=== PATIENT | male | born 1985 | race Caucasian/White ===

== ENCOUNTER 2016-11-06 18:14 | Observation (INO) | payer OTHER ==
[~2016-11-06] VITALS: Ht 177.8 cm; Wt 98.3 kg
--- NOTE | 2016-11-06 20:31 | ED ORDER SUMMARY ---
..... Patient: PAMELA FERRARO OrderSheet [facility] VisitID: [id number] [place] [address] 31y, M Registration Date/Time: 11/06/2016 ORDER SHEET Weight: 97.5 kg (stated) Allergies: None GENERAL ORDERS: CT Abd/Pel w Cont (No) (N/A) Urgent (19:36 11/06/2016 Srini MONAE) (Ack 19:38 Lisbeth) (20:30 JSanders R.N.) CBC w Diff Urgent (19:36 11/06/2016 Srini MONAE) (Ack 19:37 Lisbeth) (19:38 JSanders R.N.) CMP Urgent (19:36 11/06/2016 Srini MONAE) (Ack 19:38 Lisbeth) (19:38 JSanders R.N.) Amylase Urgent (19:36 11/06/2016 Srini MONAE) (Ack 19:38 Lisbeth) (19:38 JSanders R.N.) Lipase Urgent (19:36 11/06/2016 Srini MONAE) (Ack 19:38 Lisbeth) (19:38 JSanders R.N.) UA-Culture if indicated Urgent (19:36 11/06/2016 rSini MONAE) (Ack 19:38 Lisbeth) (21:11 JSanders R.N.) MEDICATION ORDERS: Ondansetron ODT PO 4 mg (NOW) (18:56 11/06/2016 NKneeland R.N. per protocol) (18:56 NKneeland R.N.) IV FLUIDS: IV NS : initial bolus none -, then 1000 mL/hr for X1 (NOW) (18:49 11/06/2016 NKneeland R.N. per protocol) (18:55 NKneeland R.N.) Demerol IV 25 mg (NOW) (19:36 11/06/2016 Srini MONAE) (Ack 19:39 JSanders R.N.) (19:50 JSanders R.N.) Zofran IV 4 mg (NOW) (19:36 11/06/2016 Srini MONAE) (Ack 19:39 JSanders R.N.) (Cancelled: Patient [id number] JSanders R.N.) Invanz IV 1 gm/50mL (NOW) (20:27 11/06/2016 Srini MONAE) (Ack 20:30 JSanders R.N.) (20:57 JSanders R.N.) Demerol IV 25 mg (NOW) (20:45 11/06/2016 Srini MONAE) (Ack 21:02 JSanders R.N.) (21:09 JSanders R.N.) ORDER SHEET NOTES: [Electronically signed by Home Kong MD (21:13 11/06/2016)] [Electronically signed by Genia Shaikh R.N. (05:59 11/07/2016)] [Electronically locked/signed by Genia Shaikh R.N. (05:59 11/07/2016)]
--- NOTE | 2016-11-06 20:31 | ED ORDER SUMMARY ---
..... Patient: PAMELA FERRARO OrderSheet [facility] VisitID: [id number] [place] [address] 31y, M Registration Date/Time: 11/06/2016 ORDER SHEET Weight: 97.5 kg (stated) Allergies: None GENERAL ORDERS: CT Abd/Pel w Cont (No) (N/A) Urgent (19:36 11/06/2016 Srini MONAE) (Ack 19:38 Lisbeth) (20:30 JSanders R.N.) CBC w Diff Urgent (19:36 11/06/2016 Srini MONAE) (Ack 19:37 Lisbeth) (19:38 JSanders R.N.) CMP Urgent (19:36 11/06/2016 Srini MONAE) (Ack 19:38 Lisbeth) (19:38 JSanders R.N.) Amylase Urgent (19:36 11/06/2016 Srini MONAE) (Ack 19:38 Lisbeth) (19:38 JSanders R.N.) Lipase Urgent (19:36 11/06/2016 Srini MONAE) (Ack 19:38 Lisbeth) (19:38 JSanders R.N.) UA-Culture if indicated Urgent (19:36 11/06/2016 Srini MONAE) (Ack 19:38 Lisbeth) (21:11 JSanders R.N.) MEDICATION ORDERS: Ondansetron ODT PO 4 mg (NOW) (18:56 11/06/2016 NKneeland R.N. per protocol) (18:56 NKneeland R.N.) IV FLUIDS: IV NS : initial bolus none -, then 1000 mL/hr for X1 (NOW) (18:49 11/06/2016 NKneeland R.N. per protocol) (18:55 NKneeland R.N.) Demerol IV 25 mg (NOW) (19:36 11/06/2016 Srini MONAE) (Ack 19:39 JSanders R.N.) (19:50 JSanders R.N.) Zofran IV 4 mg (NOW) (19:36 11/06/2016 Srini MONAE) (Ack 19:39 JSanders R.N.) (Cancelled: Patient [id number] JSanders R.N.) Invanz IV 1 gm/50mL (NOW) (20:27 11/06/2016 Srini MONAE) (Ack 20:30 JSanders R.N.) (20:57 JSanders R.N.) Demerol IV 25 mg (NOW) (20:45 11/06/2016 Srini MONAE) (Ack 21:02 JSanders R.N.) (21:09 JSanders R.N.) ORDER SHEET NOTES: [Electronically signed by Home Kong MD (21:13 11/06/2016)] [Electronically signed by Genia Shakih R.N. (05:59 11/07/2016)] [Electronically locked/signed by Genia Shaikh R.N. (05:59 11/07/2016)]
--- NOTE | 2016-11-06 20:31 | ED NURSING NOTES ---
Clinical Report - Nurses [facility] [address] [place] [address] 11/06/2016 18:15 Patient: PAMELA FERRARO TRIAGE Triage time 18:38. Acuity: LEVEL 3. Chief Complaint: ABDOMINAL PAIN and NAUSEA. SEPSIS SCREEN: Sepsis Screen. Negative (no infection suspected/documented). ELOY COMA SCORE: [place] Coma Scale: 15- eyes open spontaneously (4); best verbal response- oriented x 4 (5); best motor response- obeys commands (6). --18:44 Jammie Zambrano R.N. 18:38 11/06/16. BP: 153/95. HR: 105. RR: 18. O2 saturation: 97%. Temp: 100.5 F. Pain level now: 10/30. Additional comments: 10/30 Pain located RLQ/LLQ, states does not radiate to back. . --18:44 Jammie Zambrano R.N. Weight: 97.5 kg stated. Height/Length: 70 inches Per Patient. BMI: 30.8. --18:40 Jammie Zambrano R.N. Medications None. --18:40 Jammie Zambrano R.N. Medication/allergy information source: the patient. --18:44 Jammie Zambrano R.N. Allergies None. --18:40 Jammie Zambrano R.N. History Arrived by private vehicle. Historian: patient. Accompanied by family. This started last night. ( Started about 2200 last night.). Last oral intake by patient was (1100 AM). 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 PAST MEDICAL HX: Hypertension. SOCIAL HX: Occasional alcohol use; consumes beer. SELF HARM ASSESSMENT: A self harm assessment was performed. The patient answered "no" to the question "Have you recently felt down, depressed, or hopeless?", "Have you noticed less interest or pleasure in doing things?", "Do you have thoughts of harming or killing yourself?", "Are you here because you tried to hurt yourself?", "Have you ever tried to hurt yourself before today?", "Have you recently had thoughts about harming or killing others?" and "Do you have any dangerous items in your possession?". FALL RISK ASSESSMENT: Fall risk assessment completed. No fall risk identified. NUTRITIONAL RISK ASSESSMENT: The nutritional risk assessment revealed no deficiencies. FUNCTIONAL ASSESSMENT: Functional assessment: no impairments noted. LEARNING NEEDS ASSESSMENT: The learning needs assessment revealed no barriers. SKIN INTEGRITY ASSESSMENT: Skin integrity risk assessment completed. No skin integrity risk identified. --18:44 Jammie Zambrano R.N. Assessment The patient states feels the same. --18:44 Jammie Zambrano R.N. Interventions ID band on patient. To treatment room. --18:44 Jammie Zambrano R.N. PHYSICAL ASSESSMENT GENERAL / NEURO / PSYCH: Alert. Oriented X 4. Appears in no acute distress. RESPIRATORY: Respirations not labored. CVS: Capillary refill less than 2 seconds. GI / : Abdominal tenderness in the right lower quadrant, left lower quadrant and lower abdomen. SKIN: Skin is warm and dry. --18:45 Jammie Zambrano R.N. NURSING PROGRESS NOTES 18:41 11/06/2016 Site #1 started via IV antecubital space with an 18g angiocath, with aseptic technique and good blood return; one attempt. Blood drawn: rainbow set. Labeled in the presence of the patient and sent to the lab. Saline lock flushed with 10 mL saline. --18:46 Jammie Zambrano R.N. The plan of care for this patient has been created. Patient gowned. Head of bed elevated. Reassurance given. Two patient identifiers checked. Call light placed in reach. Side rails up x 1. Bed placed in lowest position. Brakes of bed on. Patient ready for evaluation- chart flagged. --18:46 Jammie Zambrano R.N. 18:55 11/06/2016 Started bag #1 1000 mL IV Fluids IV NS (Saline); at 1000 mL/hr over 1 hour(s) via site #1 via IV pump. Allergies verified and confirmed 5 rights. IV patency established. IV site checked: no pain, redness, or swelling. IV flushed thoroughly pre- and post-medication administration. --18:55 Jammie Zambrano R.N. 18:56 11/06/2016 Ondansetron ODT PO Oral Disintegrating Tablets 4 mg given. Allergies verified and confirmed 5 rights. --18:56 Jammie Zambrano R.N. Care transferred and report given (Genia CM). --19:05 Jammie Zambrano R.N. 19:16 11/06/16. ( Patient very uncomfortable, his pain in 10/30 in abd. Physician notified). --19:16 Genia Shaikh R.N. 19:15 11/06/16. BP: 150/71 (regular adult cuff) taken on the left arm, while sitting. HR: 106. RR: 20. O2 saturation: 97% on room air. Pain level now: 10/30. Additional comments: ABD. --19:16 Geina Shaikh R.N. 19:50 11/06/2016 Demerol (Meperidine HCl) IVP 25 mg given over 5 minute(s) via site #1. Allergies verified and confirmed 5 rights. IV patency established. IV site checked: no pain, redness, or swelling. IV flushed thoroughly pre- and post-medication administration. IVP given by RN. --19:50 Genia Shaikh R.N. 19:45 11/06/16. BP: 148/85 (regular adult cuff) taken on the left arm, while sitting. HR: 106. RR: 20. O2 saturation: 100%. Pain level now: 10/30. --19:51 Genia Shaikh R.N. 19:51 11/06/16. BP: 141/83 (regular adult cuff) taken on the left arm, while sitting. HR: 102. RR: 18. O2 saturation: 100%. Pain level now: 08/30. --19:52 Genia Shaikh R.N. Patient transported to [place] by stretcher with tech. (19:52 Nov 06 2016). --19:52 Genia Shaikh R.N. Patient returned from CT by stretcher with tech. (20:03 Nov 06 2016). --20:03 Genia Shaikh R.N. 20:31 11/06/16. BP: 136/70 (regular adult cuff) taken on the right arm, while sitting. HR: 107. RR: 18. O2 saturation: 95% on room air. Pain level now: 09/30. --20:32 Genia Shaikh R.N. 21:03 11/06/16. BP: 132/60 (regular adult cuff) taken on the left arm, while sitting. HR: 103. RR: 20. O2 saturation: 98% on room air. Pain level now: 10/30. --21:06 Genia Shaikh R.N. 21:08 11/06/16. BP: 127/59 (regular adult cuff) taken on the left arm, while sitting. HR: 103. RR: 18. O2 saturation: 100% on room air. Pain level now: 08/30. --21:09 Genia Shaikh R.N. 21:11/06/16. BP: 126/62 (regular adult cuff) taken on the left arm, while sitting. HR: 104. RR: 18. O2 saturation: 96% on room air. Pain level now: 07/31. --21:11 Genia Shaikh R.N. 19:55 11/06/2016 IV Fluids IV NS Discontinued: bag #1 completed. Total amount infused: 1000 mL. IV patency established. IV site checked: no pain, redness, or swelling. IV flushed thoroughly. --05:59 Genia Shaikh R.N. 20:32 11/06/16. ( informed patient of appendicitis, needs confirmation with radiologist.). --20:32 Genia Shaikh R.N. 20:55 11/06/2016 Started 1 gm of Invanz IVPB in bag #1 50 mL; at 120 mL/hr over 30 minute(s) via site #1 via IV pump. Allergies verified and confirmed 5 rights. IV patency established. IV site checked: no pain, redness, or swelling. IV flushed thoroughly pre- and post-medication administration. --20:57 Genia Shaikh R.N. 21:09 11/06/2016 Demerol (Meperidine HCl) IVP 25 mg given over 5 minute(s) via site #1. Allergies verified and confirmed 5 rights. IV patency established. IV site checked: no pain, redness, or swelling. IV flushed thoroughly pre- and post-medication administration. IVP given by RN. --21:09 Genia Shaikh R.N. 21:11 11/06/16. ( Patient advised of NPO status, he was given ice chips). --21:11 Genia Shaikh R.N. DISPOSITION / DISCHARGE 21:15 11/06/2016 Site #[address] upon transfer; patent, no pain and no signs of infection or infiltration. Good blood return present. --21:15 Genia Shaikh R.N. Bed obtained and ready (:Nov 06 2016). --21:16 Genia Shaikh R.N. Patient's personal items include: shirt, pants, shoes, wallet and cell phone, placed items in bag, these will be transferred with him to room 210B, he has upper partials which he will keep in at this time, no glasses or hearing aides; items were placed in belongings bag and transported with the patient. --21:21 Genia Shaikh R.N. 21:16 11/06/16. BP: 123/84 (regular adult cuff) taken on the left arm, while sitting. HR: 102. RR: 18. O2 saturation: 96% on room air. Pain level now: 5/10. --21:21 Genia Shaikh R.N. Report was given to a nurse via a phone call. Report included patient's care, treatment, medications, reviewed medication reconcilliation, and condition (including any recent changes or anticipated changes). All questions were answered. Report was acknowledged. (SOILA Sexton room 210B). --21:33 Genia Shaikh R.N. Departure time: :35 Nov 06 2016. --21:37 Genia Shaikh R.N. 21:11/06/2016 Invanz IVPB Discontinued: bag #2 completed. Total amount infused: 50 mL. IV patency established. IV site checked: no pain, redness, or swelling. IV flushed thoroughly. --21:37 Genia Shaikh R.N. 21:11/06/2016 Demerol IVP Response: no adverse reaction pain is improving. Symptoms have improved the patient feels better. --21:37 Genia Shaikh R.N. Locked/Released at 11/07/2016 5:59 by Genia Shaikh R.N.
--- NOTE | 2016-11-06 20:31 | ED CLINICAL REPORT ---
Clinical Report - Physicians/Mid Levels [facility] [address] [place] [address] 11/06/2016 18:15 Patient: PAMELA FERRARO Time Seen: 19:02 Nov 06 2016. Arrived- By private vehicle. Historian- patient. CPT: ER phys charges level 5 (#800157). HISTORY OF PRESENT ILLNESS Chief Complaint: ABDOMINAL PAIN. This started last night and is still present. It is described as "pain" and it is described as located in the right lower quadrant and in the lower abdomen. At its maximum, severity described as 8 / 10. When seen in the E.D., severity described as 7 / 10. Modifying factors- worsened by movement. Not relieved by anything. The patient has had nausea and loss of appetite. No vomiting or diarrhea. No recent travel. Similar symptoms previously: None. Recent medical care: The patient was seen recently at another facility in a clinic (today). Seen for similar symptoms. Diagnosis: (r/o appy). REVIEW OF SYSTEMS No constipation, black stools, hematemesis, difficulty with urination or pain with urination. No urinary frequency, fever, sore throat or throat or chest pain. No difficulty breathing, cough, joint pain, skin rash or chills. No back pain, weakness, diabetic symptoms or easy bruising. All systems otherwise negative, except as recorded above. PAST HISTORY No history of peptic ulcer. No history of gallstones or bowel obstruction. Has not had urinary calculi. Surgeries: No prior abdominal surgery. Medications: None. Allergies: None. SOCIAL HISTORY Occasional alcohol use. No drug use. ADDITIONAL NOTES The nursing notes have been reviewed. PHYSICAL EXAM Vital Signs: 11/06/2016 18:38 BP: 153/95. HR: 105. RR: 18. O2 saturation: 97%. Temp: 100.5 F. Pain level now: 7/10. Appearance: Alert. Appears to be in pain. Patient in moderate distress. Eyes: Eyes normal inspection. ENT: Pharynx normal. Neck: Normal inspection. CVS: Normal heart rate and rhythm. Heart sounds normal. Pulses normal. Respiratory: No respiratory distress. Breath sounds normal. Chest nontender. Abdomen: Soft. Moderate tenderness in the right lower quadrant and lower abdomen with guarding present. Abnormal bowel sounds: absent. No mass. Back: Normal inspection. No CVA tenderness. Skin: Skin warm. Normal skin color. No rash. Extremities: Extremities exhibit normal ROM. No lower extremity edema. Neuro: Oriented X 3. No motor deficit. No sensory deficit. LABS, X-RAYS, AND EKG Abdominal CT: There is evidence of appendicitis. No perforation with free air. Abdominal CT performed with IV contrast. The study was independently viewed by me, interpreted by the radiologist and discussed with the radiologist. Laboratory Tests: CBC w Diff: (VANESSA: 11/06/2016 18:44) ( MsgRcvd 11/06/2016 19:54) Final results Test Result Flag Units (Reference) WHITE BLOOD COUNT 17.5 H K/uL (4.5-11.5) RED BLOOD COUNT 4.99 M/uL (4.50-5.90) HEMOGLOBIN 15.2 gm/dL (13.5-17.5) HEMATOCRIT 44.6 % (41.0-53.0) MEAN CELL VOLUME 89 fL (80-100) MEAN CORPUSCULAR HGB 31 pg (26-34) MEAN CORPUSCULAR HGB CONC 34 g/dL (31-37) RED CELL DISTRIBUTION WIDTH 12.8 % (11.6-14.8) PLATELET COUNT 223 K/uL (150-400) NEUTROPHIL % 73.7 % (50-75) LYMPH % 14.8 L % (25-40) MONO % 11.1 % (3-14) EOSINOPHIL % 0 % (0-4) BASOPHIL % 0.4 % (0-2) CMP: (VANESSA: 11/06/2016 18:44) ( MsgRcvd 11/06/2016 20:15) Final results Test Result Flag Units (Reference) GLUCOSE 98 mg/dL (70-110) BUN 18 mg/dL (7-18) CREATININE 1.1 mg/dL (0.6-1.3) Estimated GFR >60 mL/min Estimated GFR- >60 mL/min Note: Persistent reduction over 3 months in eGFR<60 mL/min/1.73 m2 defines CKD. Patients with eGFR values>=60 mL/min/1.73 m2 may also have CKD if evidence ofpersistent proteinuria. Additional information may be foundat www.kidney.org. SODIUM 138 mmol/L (136-145) POTASSIUM 3.8 mmol/L (3.5-5.1) CHLORIDE 100 mmol/L (98-107) CARBON DIOXIDE 27 mmol/L (21-32) CALCIUM 9.4 mg/dL (8.5-10.1) TOTAL PROTEIN 8.0 g/dL (6.4-8.2) ALBUMIN 4.3 g/dL (3.3-5.0) BILIRUBIN, TOTAL 3.0 H mg/dL (0.0-1.0) ALKALINE PHOSPHATASE 77 U/L (46-116) AST (SGOT) 21 U/L (15-37) ALT (SGPT) 33 U/L (12-78) LIPASE 98 U/L (73-393) AMYLASE 38 U/L (25-115) . PROGRESS AND PROCEDURES Course of Care: IV NS Demerol 25 mg IV Zofran 4 mg Iv Invanz 1g IV Patient is stable. 20:46 11/06/16. CT report called and confirmed appendicitis. Discussed case with on-call health care provider, (Radha). Agreed upon treatment plan and decision to admit. Health care provider will see patient in hospital. Patient/family counseled. Disposition orders written. Disposition: Admitted to Acute Care. CLINICAL IMPRESSION Acute appendicitis with localized peritonitis. No perforation or abscess. (Electronically signed by Home Kong MD 11/06/2016 21:13)
--- NOTE | 2016-11-06 20:34 | DIAGNOSTIC IMAGING REPORT ---
PROCEDURE: ABDOMEN/PELVIS WITH CONTRAST CLINICAL INDICATION: ABDOMINAL PAIN TECHNIQUE: 125 ml of Isovue 300 were injected intravenously and axial images were obtained of the abdomen and pelvis with sagittal and coronal reformations. COMPARISON: None. FINDINGS: ABDOMEN: Clear lung bases. Normal sized heart. No hiatal hernia. The liver, gallbladder, adrenal glands, kidneys, pancreas and spleen are normal. The abdominal aorta is normal in its course and caliber. No atherosclerosis. There are no suspicious calcifications, retroperitoneal adenopathy or masses. The stomach , upper bowel loops, and mesentery are normal. Intact anterior abdominal wall. There is an enlarged, fluid-filled appendix in the midline low pelvis with surrounding inflammatory changes and small amount of adjacent free fluid. There are right lower quadrant mesenteric lymph nodes present. No extraluminal gas. Fluid levels in nondilated small bowel loops. PELVIS: Normal amount of stool in the colon and rectum. The prostate gland, seminal vesicles, urinary bladder, and pelvic vessels are normal. No adenopathy , free fluid, or pelvic mass. Well-defined, 15 mm cystic structure in the posterior right femoral neck, probably synovial herniation pit. IMPRESSION: 1. Acute appendicitis with slight adjacent ileus. 2. Discussed with Dr. Kong. All CT scans at this facility use dose modulation, iterative reconstruction, and/or weight-based dosing when appropriate to reduce radiation dose to as low as reasonably achievable.
[2016-11-06 21:45] VITALS: BP 130/58
[2016-11-07] VITALS (13 sets, daily range): BP systolic 114–137; BP diastolic 53–81
--- NOTE | 2016-11-07 06:00 | ED MAR SUMMARY ---
..... Medication Administration Record [facility] [address] [place] [address] Patient: PAMELA FERRARO Visit ID: [id number] 31y, M Weight: 97.5 kg Height/Length: 70 in BMI: 30.8 ALLERGIES: None Start 18:55 11/06/2016 Jammie Zambrano R.N., Stop 19:55 11/06/2016 Genia Shaikh R.N. Medication Administered: IV NS (SALINE), Dose: IV Fluids over 1 hour(s), Rate: 1000 mL/hr, Dispensed: 1000 mL bag, Site: #1 AC. Medication Ordered: IV NS : initial bolus none -, then 1000 mL/hr for X1 (NOW). Given 18:56 11/06/2016 Jammie Zambrano R.N. Medication Administered: ONDANSETRON ODT [PO], Dose: 4 mg Oral Disintegrating Tablets PO. Medication Ordered: Ondansetron ODT PO 4 mg (NOW). Given 19:50 11/06/2016 Genia Shaikh R.N. Medication Administered: DEMEROL [IVP] (MEPERIDINE HCL), Dose: 25 mg IVP over 5 minute(s), Site: #1 AC. Medication Ordered: Demerol IV 25 mg (NOW). Start 20:55 11/06/2016 Genia Shaikh R.N., Stop 21:27 11/06/2016 Genia Shaikh R.N. Medication Administered: INVANZ [IVPB], Dose: 1 gm IVPB over 30 minute(s), Rate: 120 mL/hr, Dispensed: 50 mL bag, Site: #1 AC. Medication Ordered: Invanz IV 1 gm/50mL (NOW). Given 21:09 11/06/2016 Genia Shaikh R.N. Medication Administered: DEMEROL [IVP] (MEPERIDINE HCL), Dose: 25 mg IVP over 5 minute(s), Site: #1 AC. Medication Ordered: Demerol IV 25 mg (NOW).
--- NOTE | 2016-11-07 06:00 | ED DISCHARGE INSTRUCTIONS ---
Patient: PAMELA FERRARO General Instructions [facility] VisitID: [id number] [address] [place] [address] 31y, M Registration Date/Time: 11/06/2016 Acute appendicitis with localized peritonitis. No perforation or abscess. (Electronically signed by Home Kong MD 11/06/2016 21:13)
--- NOTE | 2016-11-07 06:00 | ED MED RECONCILIATION SUMMARY ---
Patient: PAMELA FERRARO Medication Reconciliation Report [facility] VisitID: [id number] [address] [place] [address] 31y, M Registration Date/Time: 11/06/2016 Weight: 97.5 kg Height/Length: 70 in. BMI: 30.8 ALLERGIES: None The patient's Home Medications are listed below: NONE. The source(s) of the original Home Medication information: patient The following Medications were given to the patient in the Emergency Department: IV NS IV Fluids bolus 0, then 1000 mL/hr, administered: 11/06/2016 6:55:00 PM Ondansetron ODT [PO] PO 4 mg, administered: 11/06/2016 6:56:00 PM Demerol [IVP] IVP 25 mg, administered: 11/06/2016 7:50:00 PM Invanz [IVPB] IVPB bolus 0, then 1 gm 120 mL/hr, administered: 11/06/2016 8:55:00 PM Demerol [IVP] IVP 25 mg, administered: 11/06/2016 9:09:00 PM The following Medications were prescribed to the patient: None.
--- NOTE | 2016-11-07 06:00 | ED MED RECONCILIATION SUMMARY ---
Patient: PAMELA FERRARO Medication Reconciliation Report [facility] VisitID: [id number] [address] [place] [address] 31y, M Registration Date/Time: 11/06/2016 Weight: 97.5 kg Height/Length: 70 in. BMI: 30.8 ALLERGIES: None The patient's Home Medications are listed below: NONE. The source(s) of the original Home Medication information: patient The following Medications were given to the patient in the Emergency Department: IV NS IV Fluids bolus 0, then 1000 mL/hr, administered: 11/06/2016 6:55:00 PM Ondansetron ODT [PO] PO 4 mg, administered: 11/06/2016 6:56:00 PM Demerol [IVP] IVP 25 mg, administered: 11/06/2016 7:50:00 PM Invanz [IVPB] IVPB bolus 0, then 1 gm 120 mL/hr, administered: 11/06/2016 8:55:00 PM Demerol [IVP] IVP 25 mg, administered: 11/06/2016 9:09:00 PM The following Medications were prescribed to the patient: None.
--- NOTE | 2016-11-07 06:00 | ED DISCHARGE INSTRUCTIONS ---
Patient: PAMELA FERRARO General Instructions [facility] VisitID: [id number] [address] [place] [address] 31y, M Registration Date/Time: 11/06/2016 Acute appendicitis with localized peritonitis. No perforation or abscess. (Electronically signed by Home Kong MD 11/06/2016 21:13)
--- NOTE | 2016-11-07 06:00 | ED MAR SUMMARY ---
..... Medication Administration Record [facility] [address] [place] [address] Patient: PAMELA FERRARO Visit ID: [id number] 31y, M Weight: 97.5 kg Height/Length: 70 in BMI: 30.8 ALLERGIES: None Start 18:55 11/06/2016 Jammie Zambrano R.N., Stop 19:55 11/06/2016 Genia Shaikh R.N. Medication Administered: IV NS (SALINE), Dose: IV Fluids over 1 hour(s), Rate: 1000 mL/hr, Dispensed: 1000 mL bag, Site: #1 AC. Medication Ordered: IV NS : initial bolus none -, then 1000 mL/hr for X1 (NOW). Given 18:56 11/06/2016 Jammie Zambrano R.N. Medication Administered: ONDANSETRON ODT [PO], Dose: 4 mg Oral Disintegrating Tablets PO. Medication Ordered: Ondansetron ODT PO 4 mg (NOW). Given 19:50 11/06/2016 Genia Shaikh R.N. Medication Administered: DEMEROL [IVP] (MEPERIDINE HCL), Dose: 25 mg IVP over 5 minute(s), Site: #1 AC. Medication Ordered: Demerol IV 25 mg (NOW). Start 20:55 11/06/2016 Genia Shiakh R.N., Stop 21:27 11/06/2016 Genia Shaikh R.N. Medication Administered: INVANZ [IVPB], Dose: 1 gm IVPB over 30 minute(s), Rate: 120 mL/hr, Dispensed: 50 mL bag, Site: #1 AC. Medication Ordered: Invanz IV 1 gm/50mL (NOW). Given 21:09 11/06/2016 Genia Shaikh R.N. Medication Administered: DEMEROL [IVP] (MEPERIDINE HCL), Dose: 25 mg IVP over 5 minute(s), Site: #1 AC. Medication Ordered: Demerol IV 25 mg (NOW).
--- NOTE | 2016-11-07 13:24 | Provider's Discharge Care Plan ---
Problem, Goal, Plan Problem List 1. Acute appendicitis
--- NOTE | 2016-11-07 13:24 | Provider's Discharge Care Plan ---
Problem, Goal, Plan Problem List 1. Acute appendicitis
[2016-11-07] MEDS ORDERED: NORCO1 TA1 PO (13:25)
--- NOTE | 2016-11-07 14:29 | CONSULTATION REPORT ---
DATE OF CONSULTATION: 11/07/2016 REASON FOR CONSULTATION: Abdominal pain. HISTORY OF PRESENT ILLNESS: The patient is a 31-year-old young man who presented to the hospital yesterday evening with a one-day history of worsening abdominal pain. The pain started in the right lower quadrant and became consistently worse, causing him to present to the emergency department. There was no diarrhea. There was no vomiting. He did have nausea and anorexia. MEDICAL/SURGICAL HISTORY: Medical history: Unremarkable. Surgical history: None. MEDICATIONS: 1. None. ALLERGIES: 1. NONE. FAMILY HISTORY: The patient's parents are alive and well. He has grandparents with cancer and heart disease. SOCIAL HISTORY: The patient is . 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 He does not smoke cigarettes. He takes occasional alcohol. REVIEW OF SYSTEMS: Review of systems from Dr. Kong on 11/06/2016 was reviewed. Basically, the entire review of systems is negative, covering at least 12 systems. PHYSICAL EXAMINATION: VITAL SIGNS: Admitting temperature 100.5, now afebrile. Blood pressure 153/95, heart rate of 105, and respirations 18. GENERAL: The patient is alert and cooperative. HEENT: His ears and nose are without gross external lesions. Eyes: Equal. He is anicteric. Neck without palpable masses or thyromegaly. There is no bruit. CHEST: Chest clear to auscultation. HEART: Heart is regular without murmur. ABDOMEN: Abdomen is tender to palpation with the most focused tenderness in the right lower quadrant. He has involuntary guarding and referred pain. Bowel sounds are active. He is nondistended. EXTREMITIES: Extremities are symmetric and he moves without restriction. LAB/IMAGING: White count is 17.5. CT scan shows appendicitis. IMPRESSION: 1. Acute appendicitis. PLAN: Antibiotics and laparoscopic appendectomy. I explained to the patient the nature of this operation, as well as alternatives , benefits and risks, including alternative of antibiotic therapy and nonsurgical treatment, open appendectomy. Risks discussed included infection, bleeding, scars, pain, damage to local structures, and alternative diagnoses being present. The patient would like to proceed as described.
--- NOTE | 2016-11-08 08:59 | OPERATIVE REPORT ---
DATE OF SURGERY: 11/07/2016 SURGEON: EVELIN GRAVES M.D. PREOPERATIVE DIAGNOSIS: 1. Acute appendicitis. POSTOPERATIVE DIAGNOSIS: 1. Acute appendicitis. PROCEDURE PERFORMED: 1. Laparoscopic appendectomy. ANESTHESIA: General. INDICATIONS: The patient is a 31-year-old man presenting with a one-day history of worsening abdominal pain. SURGICAL TECHNIQUE: The patient was taken to the operating room where general anesthetic was administered. The patient was prepped and draped in the usual sterile fashion. IV antibiotics were on board and he received an orogastric tube and sequential compression devices. A local anesthetic of 0.5% Marcaine with epinephrine was used at each incision site. An infraumbilical incision was made, and a 10 mm cannula passed. Visualization was obtained. This demonstrated an acute thickened and inflamed appendix. Two additional trocars were placed and the appendix was bluntly dissected off the abdominal wall. The mesoappendix was taken down using a Thunderbeat device and the base of the appendix isolated. The appendix was clipped with two Hem-o-maryjane clips, as was the specimen side. The appendix was partially transected and exposed. Mucosa treated with bipolar current. The appendix was then transected and placed in a specimen bag and extracted. Suction was used to clear any fluid from the operative field. Gas was evacuated and the umbilical skin closed with a single interrupted subcuticular 4-0 Vicryl suture. Steri-Strip dressings were placed at all sites and the patient left in good condition. No intraoperative complications were encountered.
== END 2016-11-07 17:05 | disposition home or self-care (01) ==
LOC: ED SRH 18:14 → EDBD 18:16 → ACUTE2 SRH 20:59 → TRANS SRH 20:59 → ACUTE2 SRH 21:00
PROVIDERS: ADMIT Surgery
PROC: 0DTJ4ZZ Resection of Appendix, Percutaneous Endoscopic Approach (ICD-10-PCS; principal; 2016-11-07 12:30)
DX: K35.80 Unspecified acute appendicitis (principal); R11.0 Nausea
CPT/HCPCS: 29229; 29230; 29259; 29264; 50002; 60001; 70002; 80102; 80248; 82794; 82811; 82897; 83338; 83343; 83587; 83919; 83982; 84038; 90004; 90100; 92235; 92530; 95059